=== PATIENT | female | born 1960 | race African-American/Black ===

== ENCOUNTER → 2017-02-12 | Outpatient (CLI) | payer BC ==
--- NOTE | ~2017-02-12 | CR173 ---
[facility] A Service of [facility] & [facility] RADIOLOGY TEXT RESULTS PATIENT: EDNA METZ LOCATION: [facility] : 62 UNIT #: [id number] AGE: [address]: TD MUNOZ MD SEX: F ORDER DR: [id number] [facility] [address] [place], [place] [address] [id number] MR#: [id number] Acc #: [id number] NAME: EDNA METZ : 1960 SEX: F STUDY DATE/TIME: 02/12/2017 16:57 UNIT: [facility] ROOM: STUDY DESCRIPTION: CR Knee 3 Views Rt Attending Physician: Td Munoz M.D. Referring Physician: Td Munoz M.D. Ordering Physician: Td Munoz M.D. Primary Care Physician: Td Munoz M.D. MEDICAL IMAGING REPORT This report is preliminary unless electronic signature is present EXAM Right knee 3 views, 02/12/2017 HISTORY Right knee pain since September 2016 status post fall with right knee swelling. Persistent pain and swelling. FINDINGS 3 views of the right knee demonstrate no fracture. The joint space is normally maintained. There are small osteophytes and subchondral cyst formation involving the posterior aspect of the patella. The bones are otherwise normally mineralized. There is no joint effusion. IMPRESSION Minimal degenerative change involving the patellofemoral joint. Otherwise negative right knee. Dictated by... Keaton Silvestre M.D. THIS IS AN ELECTRONICALLY VERIFIED REPORT Keaton Silvestre M.D. at 02/14/2017 8:10 AM WOLF/amanda TD: 02/13/2017 10:10 JOB #: [id number] MEDICAL IMAGING REPORT Page 1 of 1 COPY
== END | disposition home or self-care (01) ==
LOC: CRAD 16:37
DX: M25.561 Pain in right knee (principal)
CPT/HCPCS: 73562